=== PATIENT | male | born 1970 | race African-American/Black ===

== ENCOUNTER 2016-06-26 17:33 | Emergency (ER) | payer BC ==
--- NOTE | 2016-06-26 20:29 | ED ---
Gustavo Martinez Adam, scribed for Michele Brannon MD on 06/26/16 at 1950 . Palpitations / Dysrhythmia - HPI Summary HPI Summary: Pt is a 46 year old male presenting with palpitations and chest tightness. He began having these symptoms 6 days ago and they have been intermittent since then. The episodes vary in severity and the pt states that deborah's episode was relatively strong. He began having palpitations and chest tightness at 16: 30 and decided to come to the ED. His palpitations began to resolve as he arrived at the ED but he still feels some pressure in his chest now. He also reports that he had some SOB associated with the palpitations. Pt took his metoprolol earlier. Yesterday he went to his PCP for these symptoms and was advised to follow up with a financial service professional but he has not scheduled an appt yet. He has never seen a financial service professional before. PMHx of HTN. - History of Current Complaint Chief Complaint: EDDysrhythmPalp Time Seen by Provider: 06/26/16 19:19 Hx Obtained From: Patient Onset/Duration: Sudden Onset, Lasting Days, Still Present Timing: Intermittent Episodes Lasting: - Minutes - hours Severity Initially: Moderate Severity Currently: Mild Character: Pounding Aggravating: Nothing Alleviating: Nothing Associated Signs & Symptoms: Chest Pain - Tightness, Shortness of Breath - Allergy/Home Medications Allergies/Adverse Reactions: Allergies Allergy/AdvReac Type Severity Reaction Status Date / Time No Known Allergies Allergy Verified 07/13/14 09:52 PMH/Surg Hx/FS Hx/Imm Hx Endocrine/Hematology History: Denies: Hx Diabetes, Hx Thyroid Disease Cardiovascular History: Reports: Hx Hypertension Respiratory History: Denies: Hx Asthma, Hx Chronic Obstructive Pulmonary Disease (COPD) GI History: Denies: Hx Ulcer Infectious Disease History: No Infectious Disease History: Denies: Hx Hepatitis, Hx Human Immunodeficiency Virus (HIV), Traveled Outside the [place] in Last 30 Days - Family History Known Family History: Positive: Hypertension, Diabetes - Social History Occupation: Employed Full-time Lives: With Family - Domestic partner female Alcohol Use: None Hx Substance Use: No Substance Use Type: Reports: None Hx Tobacco Use: No Smoking Status (MU): Never Smoked Tobacco Review of Systems Positive: Palpitations, Chest Pain - Tightness Positive: Shortness Of Breath All Other Systems Reviewed And Are Negative: Yes Physical Exam Triage Information Reviewed: Yes Vital Signs On Initial Exam: Initial Vitals Temp Pulse Resp BP Pulse Ox 96.9 F 92 20 131/97 95 06/26/16 17:42 06/26/16 17:42 06/26/16 17:42 06/26/16 17:42 06/26/16 17:42 Vital Signs Reviewed: Yes Appearance: Positive: No Pain Distress, Obese Skin: Positive: Warm Head/Face: Positive: Normal Head/Face Inspection Eyes: Positive: MADDISON ENT: Positive: Hearing grossly normal Neck: Positive: Supple Respiratory/Lung Sounds: Positive: Breath Sounds Present Cardiovascular: Positive: RRR. Negative: Murmur Abdomen Description: Positive: Nontender, Soft Bowel Sounds: Positive: Present Musculoskeletal: Positive: Strength/ROM Intact Neurological: Positive: Alert, Oriented to Person Place, Time Psychiatric: Positive: Affect/Mood Appropriate - Galen Coma Scale Coma Scale Total: 15 Diagnostics - Vital Signs Vital Signs Temp Pulse Resp BP Pulse Ox 06/26/16 18:35 98.0 F 06/26/16 18:30 20 06/26/16 17:42 96.9 F 92 20 131/97 95 - Laboratory Lab Statement: Any lab studies that have been ordered have been reviewed, and results considered in the medical decision making process. - EKG 17:34 Cardiac Rate: NL - 92 BPM Re-Evaluation - Re-Evaluation First Eval Comment: pt does not want to wait for labs tates wants to go home, advised to f/ u with pcp/cardio as previously recommended Course/Dx - Diagnoses Provider Diagnoses: Palpitations Discharge - Discharge Plan Condition: Stable Disposition: HOME Patient Education Materials: Palpitations (ED) Referrals: Lolly Chatman NP [Primary Care Provider] - Additional Instructions: Follow up with Lolly Chatman tomorrow. The documentation as recorded by the Gustavo melchor Adam accurately reflects the service I personally performed and the decisions made by me, Michele Brannon MD.
[2016-06-26 23:36] VITALS: BP 138/88
== END 2016-06-26 20:44 | disposition home or self-care (01) ==
LOC: ED 17:33
DX: R00.2 Palpitations (principal); R07.9 Chest pain, unspecified; R06.02 Shortness of breath
CPT/HCPCS: 93005; 99282

== ENCOUNTER 2016-07-22 07:13 | Emergency (ER) | payer BC ==
[2016-07-22 07:28] VITALS: BP 145/82
--- NOTE | 2016-07-22 10:16 | UC ---
Taurus Martinez Billy, scribed for Carmen Castillo DO on 07/22/16 at 0753 . Dental HPI - HPI Summary HPI Summary: Patient is a 46 year-old male [place] [facility] with several weeks of ongoing dental pain. Patient states that he had been controlling the pain with tramadol and ibuprofen, but it is no longer working to alleviate the pain. Pain severity 8/10. Pain is located in several of the upper molars and premolars, worse on the left than the right. Pain is worse when chewing and exposure to cold air. He has not had any drainage in the mouth. - History of Current Complaint Chief Complaint: UCDentalProblem Stated Complaint: TOOTH COMPLAINT Time Seen by Provider: 07/22/16 07:45 Hx Obtained From: Patient Onset/Duration: Gradual Onset, Lasting Weeks, Still Present Severity: Moderate Pain Intensity: 8 Pain Scale Used: 0-10 Numeric Aggravating: Cold, Chewing Alleviating: Other (see comments) - Pain has been controlled with pain medication, but the patient states that this is no longer helping. Related History: Previous Dental Care on Same Tooth - Allergies/Home Medications Allergies/Adverse Reactions: Allergies Allergy/AdvReac Type Severity Reaction Status Date / Time No Known Allergies Allergy Verified 07/13/14 09:52 Home Medications: Home Medications Ibuprofen TAB* [Motrin TAB* 800 MG] 800 mg PO Q6H 07/22/16 [History Confirmed ] traMADol TAB* [Ultram*] 50 mg PO Q6HR PRN 07/22/16 [History Confirmed 07/22/16] PMH/Surg Hx/FS Hx/Imm Hx Endocrine History Of: Denies: Diabetes, Thyroid Disease Cardiovascular History Of: Reports: Hypertension Denies: Cardiac Disorders, Myocardial Infarction Respiratory History Of: Denies: COPD, Asthma GI/ History Of: Denies: Ulcer - Surgical History Surgical History: None - Family History Known Family History: Positive: Hypertension, Diabetes - Social History Lives: With Family Alcohol Use: None Substance Use Type: None Smoking Status (MU): Never Smoked Tobacco Review of Systems Constitutional: Negative Skin: Negative Eyes: Negative ENT: Dental Pain Respiratory: Negative Cardiovascular: Negative Gastrointestinal: Negative Genitourinary: Negative Motor: Negative Neurovascular: Negative Musculoskeletal: Negative Neurological: Negative Psychological: Negative All Other Systems Reviewed And Are Negative: Yes Physical Exam Triage Information Reviewed: Yes Appearance: Well-Appearing, No Pain Distress, Well-Nourished Vital Signs: Initial Vital Signs Temp 99.7 F 07/22/16 07:22 Pulse 60 07/22/16 07:22 Resp 18 07/22/16 07:22 BP 145/82 07/22/16 07:22 Pulse Ox 96 07/22/16 07:22 Vital Signs Reviewed: Yes Eyes: Positive: Conjunctiva Clear. Negative: Discharge ENT: Positive: Normal ENT inspection Dental: Positive: Percussion Tenderness @ - Teeth 11, 13, and 5. Neck: Positive: Supple, Nontender Respiratory: Positive: Lungs clear, Normal breath sounds, No respiratory distress, No accessory muscle use Cardiovascular: Positive: RRR, No Murmur Musculoskeletal Exam: Normal Neurological: Positive: Alert, Muscle Tone Normal Psychological Exam: Normal Psychological: Positive: Age Appropriate Behavior Skin Exam: Normal, Other - Warm, dry skin. Dental Complaint Course/Dx - Differential Dx/Diagnosis Differential Diagnosis/Dx: Dental Abscess, Dental Caries, Fractured Tooth Provider Diagnoses: toothache Discharge - Discharge Plan Condition: Stable Disposition: HOME Prescriptions: Amoxicillin/Clavulanate TAB* [Augmentin TAB 875*] 875 mg PO BID #20 tab traMADol TAB* [Ultram*] 50 mg PO Q8H PRN #7 tab MDD 3 TABS PRN Reason: Pain Patient Education Materials: Toothache (ED) Referrals: Lyudmila Ramirez MD [Primary Care Provider] - If Needed Additional Instructions: AUGMENTIN: Augmentin is a mixture of amoxicillin and clavulanate. Amoxicillin is a member of the penicillin family. It covers the germs likely to cause ear, bronchial, and urinary infections better than plain penicillin. The addition of clavulanate allows it to cover staph infections of the skin, as well as resistant cases of ear and sinus infections. Your physician has chosen Augmentin for you because of the special nature of your situation. Augmentin is best taken with meals. Nausea after taking the medication is rare, but can occur. Diarrhea can occur, particularly in small children. Vaginal yeast infections, and oral thrush in infants are also common. Contact your physician if these problems occur. Allergy to penicillins is common. If you have had an allergic reaction to any drug of the penicillin family, you should never take any other penicillin. Notify your doctor at once if you develop hives, shortness of breath, swelling, or faintness. ANY TIME YOU TAKE AN ANTIBIOTIC, IT IS IMPORTANT TO REPLENISH THE BODY'S BALANCE OF "GOOD" BACTERIA BY EATING HIGH QUALITY CULTURED FOOD SUCH YOGURT, SAURKRAUT OR RANJIT CHI AND/OR TAKING A PROBIOTIC SUPPLEMENT. ULTRAM (tramadol hydrochloride): Ultram is an excellent drug for pain relief. It is not a narcotic, but it works in a similar way. Ultram can take up to two hours for full effect. Although not addicting, Ultram is best avoided in patients with a history of drug abuse. Ultram should not be used with alcohol, sleeping pills, or narcotics. If you're prone to seizures, Ultram can make you more likely to have a seizure. Ultram can be hazardous when combined with MAO-inhibitor antidepressants (such as Nardil or Parnate). Be sure your doctor is aware of all medicines you are taking. Persons with severe liver or kidney disease should increase the time between doses of Ultram. Discuss this with your doctor if you're uncertain. Side effects of Ultram can include dizziness, nausea, constipation, sleepiness, and itching. (These side effects are also seen with narcotic pain medicines.) Please call your doctor if you have other disturbing effects. The documentation as recorded by the Taurus melchor Billy accurately reflects the service I personally performed and the decisions made by , Carmen Castillo DO.
== END 2016-07-22 08:24 | disposition home or self-care (01) ==
LOC: UCEAST 07:13
DX: K08.89 Other specified disorders of teeth and supporting structures (principal); I10 Essential (primary) hypertension
CPT/HCPCS: 99212; G0463

== ENCOUNTER 2017-01-07 08:44 | Observation (INO) | payer BC ==
[2017-01-07] MEDS ORDERED: NS 0.9% 1000 ML* 1,000 ML IV ONE (09:09)
[2017-01-07] MEDS ORDERED: Adenosine SYRINGE* 6 MG/2 ML IV PUSH ONE (09:09)
[2017-01-07] MEDS ORDERED: Adenosine* 3 MG/ML VIAL IV PUSH ONE (09:11)
[2017-01-07 09:25] LABS: Hematocrit 43 % (42-52); Hemoglobin 13.8 g/dl (14.0-18.0); Mean Corpuscular HGB Conc 32 g/dl (31-36); Mean Corpuscular Hemoglobin 28 pg (27-31); Mean Corpuscular Volume 86 fL (80-94); Mean Platelet Volume 8 um3 (7.4-10.4); Red Cell Distribution Width 14 % (10.5-15); White Blood Count 11.6 10^3/ul (3.5-10.8)
[2017-01-07] MEDS ORDERED: Adenosine* 3 MG/ML VIAL ONE (09:25)
--- NOTE | 2017-01-07 09:38 | RAD ---
INDICATION: Shortness of breath and chest pain. COMPARISON: Comparison is made with a prior chest x-ray study from October 06, 2009. TECHNIQUE: A portable view of the chest was obtained. FINDINGS: Cardiac and mediastinal contours appear to be within normal limits. The lungs are clear. No pleural effusion is seen. IMPRESSION: NO EVIDENCE FOR ACUTE DISEASE.
[2017-01-07 09:40] LABS: Albumin 4.1 g/dL (3.2-5.2); BUN/Creatinine Ratio 8.7 (8-20); EGFR African American 99.1 (>60); EGFR Non-African American 77.1 (>60); Globulin 4.2 g/dL (2-4); Magnesium 1.8 mg/dL (1.9-2.7); Potassium 3.6 mmol/L (3.5-5.0); Total Bilirubin 0.4 mg/dL (0.2-1.0); Total Protein 8.3 g/dL (6.4-8.9)
--- NOTE | 2017-01-07 12:03 | ED ---
Mateusz Martinez Thomas, scribed for Braden Hicks MD on 01/07/17 at 0911 . Palpitations / Dysrhythmia - HPI Summary HPI Summary: The pt is a 46 y/o M with a Hx of A-Fib presenting to the ED c/o palpitations characterized as fast that began suddenly this morning at 08:00. He has prior episodes of A-Fib and his last cardioversion was 6 years ago. He took Metoprolol 100mg and ASA 81mg earlier today. Pt additionally c/o tingling in his lower extremities, weakness, tiredness, and SOB. He denies CP in the ED, although he does note a chronic intermittent chest tightness that is aggravated when he walks and works. Pt denies leg swelling, RUIZ, fever, and chills. PMHx: HTN, little bit of an enlarged heart, angina. PSHx: none. SHx: no smoking, no alcohol use, no excessive caffeine use. FHx: Cad, DM, HLD, HTN. His PCP is Dr. Ramirez. He is accompanied by a female family member - History of Current Complaint Chief Complaint: EDGeneral Time Seen by Provider: 01/07/17 09:02 Hx Obtained From: Patient, Family/General Handling Supervisor - accompanied by a female female member Onset/Duration: Sudden Onset, Lasting Minutes - onset today at 08:00, Still Present Timing: Constant Character: Fast Aggravating: Nothing Alleviating: Nothing Associated Signs & Symptoms: Lightheadedness, Shortness of Breath Related History: Similar Episode/Dx as - Last episode of A-Fib 6 years ago - Allergy/Home Medications Allergies/Adverse Reactions: Allergies Allergy/AdvReac Type Severity Reaction Status Date / Time No Known Allergies Allergy Verified 01/07/17 08:56 PMH/Surg Hx/FS Hx/Imm Hx Previously Healthy: No Endocrine/Hematology History: Denies: Hx Diabetes, Hx Thyroid Disease Cardiovascular History: Reports: Hx Angina, Hx Hypertension, Other Cardiovascular Problems/Disorders - "little bit" of an enlarged heart Denies: Hx Coronary Artery Disease, Hx Hypercholesterolemia, Hx Myocardial Infarction, Hx Valvular Heart Disease Respiratory History: Denies: Hx Asthma, Hx Chronic Obstructive Pulmonary Disease (COPD) GI History: Denies: Hx Ulcer - Surgical History Surgery Procedure, Year, and Place: None. Infectious Disease History: Unable to Obtain/Confirm Infectious Disease History: Denies: Hx Hepatitis, Hx Human Immunodeficiency Virus (HIV), Traveled Outside the [place] in Last 30 Days - Family History Known Family History: Positive: Cardiac Disease, Hypertension, Diabetes - Social History Alcohol Use: None Hx Substance Use: No Substance Use Type: Reports: None Hx Tobacco Use: No Smoking Status (MU): Never Smoked Tobacco Review of Systems Negative: Fever, Chills Positive: Palpitations - characterized as fast, Chest Pain - none in the ED, although he has an intermittent chronic CP worsened with exertion Positive: Shortness Of Breath Negative: Edema - leg Neurological: Other - POS: tingling in lower extremities, tiredness Positive: Weakness. Negative: Headache All Other Systems Reviewed And Are Negative: Yes Physical Exam - Summary Physical Exam Summary: The patient is well-nourished in no acute distress and in no acute pain. He is not a great historian. The skin is cool to the touch and dry and skin color reflects adequate perfusion. HEENT: ~The head is normocephalic and atraumatic. The pupils are equal and reactive. The conjunctivae are clear and without drainage. ~Nares are patent and without drainage. ~Mouth reveals moist mucous membranes and the throat is without erythema and exudate. ~The external ears are intact. The ear canals are patent and without drainage. The tympanic membranes are intact. Neck is supple with full range of motion and non-tender. There are no carotid bruits. ~There is no neck vein distension. Respiratory: Chest is non-tender. ~Lungs are clear to auscultation and breath sounds are symmetrical and equal. Cardiovascular: Heart is tachycardic and regular rhythm. ~There is no murmur or rub auscultated. ~~There is no peripheral edema and pulses are symmetrical and equal. Abdomen: The abdomen is soft and non-tender. ~There are normal bowel sounds heard in all four quadrants and there is no organomegaly palpated. Musculoskeletal: There is no back pain noted. ~Extremities are non-tender with full range of motion. ~There is good capillary refill. ~There is no peripheral edema or calf tenderness elicited. Neurological: Patient is alert and oriented to person, place and time. ~The patient has symmetrical motor strength in all four extremities. ~Cranial nerves are grossly intact. Deep tendon reflexes are symmetrical and equal in all four extremities. Psychiatric: The patient has an appropriate affect and does not exhibit any anxiety or depression. Triage Information Reviewed: Yes Vital Signs On Initial Exam: Initial Vitals Temp Pulse Resp BP Pulse Ox 98.2 F 160 22 110/72 100 01/07/17 08:47 01/07/17 08:47 01/07/17 08:47 01/07/17 08:47 01/07/17 08:47 Vital Signs Reviewed: Yes Diagnostics - Vital Signs Vital Signs Temp Pulse Resp BP Pulse Ox 01/07/17 08:47 98.2 F 160 22 110/72 100 - Laboratory Lab Results: Lab Results 01/07/17 01/07/17 01/07/17 Range/Units 09:06 09:06 09:06 WBC 11.6 H (3.5-10.8) 10^3/ul RBC 5.00 (4.0-5.4) 10^6/ul Hgb 13.8 L (14.0-18.0) g/dl Hct 43 (42-52) % MCV 86 (80-94) fL MCH 28 (27-31) pg MCHC 32 (31-36) g/dl RDW 14 (10.5-15) % Plt Count 281 (150-450) 10^3/ul MPV 8 (7.4-10.4) um3 Neut % (Auto) 72.1 (38-83) % Lymph % (Auto) 22.1 L (25-47) % Ingham % (Auto) 4.5 (1-9) % Eos % (Auto) 0.1 (0-6) % Baso % (Auto) 1.2 (0-2) % Absolute Neuts (auto) 8.4 H (1.5-7.7) 10^3/ul Absolute Lymphs (auto) 2.6 (1.0-4.8) 10^3/ul Absolute Monos (auto) 0.5 (0-0.8) 10^3/ul Absolute Eos (auto) 0 (0-0.6) 10^3/ul Absolute Basos (auto) 0.1 (0-0.2) 10^3/ul Absolute Nucleated RBC 0.01 10^3/ul Nucleated RBC % 0.1 INR (Anticoag Therapy) 1.06 (0.89-1.11) APTT 34.0 (26.0-36.3) seconds Sodium 136 (133-145) mmol/L Potassium 3.6 (3.5-5.0) mmol/L Chloride 97 L (101-111) mmol/L Carbon Dioxide 31 (22-32) mmol/L Anion Gap 8 (2-11) mmol/L BUN 9 (6-24) mg/dL Creatinine 1.03 (0.67-1.17) mg/dL Est GFR ( Amer) 99.1 (>60) Est GFR (Non-Af Amer) 77.1 (>60) BUN/Creatinine Ratio 8.7 (8-20) Glucose 161 H (70-100) mg/dL Lactic Acid (0.5-2.0) mmol/L Calcium 10.0 (8.6-10.3) mg/dL Magnesium 1.8 L (1.9-2.7) mg/dL Total Bilirubin 0.40 (0.2-1.0) mg/dL AST 22 (13-39) U/L ALT 29 (7-52) U/L Alkaline Phosphatase 95 (34-104) U/L Troponin I 0.00 (<0.04) ng/mL B-Natriuretic Peptide ( - 100) pg/mL Total Protein 8.3 (6.4-8.9) g/dL Albumin 4.1 (3.2-5.2) g/dL Globulin 4.2 H (2-4) g/dL Albumin/Globulin Ratio 1.0 (1-3) TSH 1.00 (0.34-5.60) mcIU/mL 01/07/17 01/07/17 Range/Units 09:06 09:06 WBC (3.5-10.8) 10^3/ul RBC (4.0-5.4) 10^6/ul Hgb (14.0-18.0) g/dl Hct (42-52) % MCV (80-94) fL MCH (27-31) pg MCHC (31-36) g/dl RDW (10.5-15) % Plt Count (150-450) 10^3/ul MPV (7.4-10.4) um3 Neut % (Auto) (38-83) % Lymph % (Auto) (25-47) % Ing[place] % (Auto) (1-9) % Eos % (Auto) (0-6) % Baso % (Auto) (0-2) % Absolute Neuts (auto) (1.5-7.7) 10^3/ul Absolute Lymphs (auto) (1.0-4.8) 10^3/ul Absolute Monos (auto) (0-0.8) 10^3/ul Absolute Eos (auto) (0-0.6) 10^3/ul Absolute Basos (auto) (0-0.2) 10^3/ul Absolute Nucleated RBC 10^3/ul Nucleated RBC % INR (Anticoag Therapy) (0.89-1.11) APTT (26.0-36.3) seconds Sodium (133-145) mmol/L Potassium (3.5-5.0) mmol/L Chloride (101-111) mmol/L Carbon Dioxide (22-32) mmol/L Anion Gap (2-11) mmol/L BUN (6-24) mg/dL Creatinine (0.67-1.17) mg/dL Est GFR ( Amer) (>60) Est GFR (Non-Af Amer) (>60) BUN/Creatinine Ratio (8-20) Glucose (70-100) mg/dL Lactic Acid 3.2 H* (0.5-2.0) mmol/L Calcium (8.6-10.3) mg/dL Magnesium (1.9-2.7) mg/dL Total Bilirubin (0.2-1.0) mg/dL AST (13-39) U/L ALT (7-52) U/L Alkaline Phosphatase (34-104) U/L Troponin I (<0.04) ng/mL B-Natriuretic Peptide 55 ( - 100) pg/mL Total Protein (6.4-8.9) g/dL Albumin (3.2-5.2) g/dL Globulin (2-4) g/dL Albumin/Globulin Ratio (1-3) TSH (0.34-5.60) mcIU/mL Result Diagrams: 01/07/17 09:06 01/07/17 09:06 Lab Statement: Any lab studies that have been ordered have been reviewed, and results considered in the medical decision making process. - Radiology CXR Xray Interpretation: No Acute Changes - CXR shows on evidence for acute disease. ED physician has read this report and agrees. Radiology Interpretation Completed By: Radiologist - EKG 08:51 Cardiac Rate: Tachycardia - 137 BPM EKG Interpretation: SVT at 137 BPM with no P waves, regular, and nonspecific ST changes. 09:33 Cardiac Rate: NL - 93 BPM EKG Interpretation: Sinus rhythm at 89 BPM, nonspecific ST changes, and no STEMI. Re-Evaluation - Re-Evaluation First Eval Re-Evaluation Time: 11:15 Change: Unchanged Comment: He is still having chest pain. Course/Dx - Course Assessment/Plan: The pt is a 46 y/o M with a Hx of A-Fib presenting to the ED c/ o palpitations characterized as fast that began suddenly this morning at 08:00. He has prior episodes of A-Fib and his last cardioversion was 6 years ago. He took Metoprolol 100mg and ASA 81mg earlier today. Pt additionally c/o tingling in his lower extremities, weakness, tiredness, and SOB. He denies CP in the ED, although he does note a chronic intermittent chest tightness that is aggravated when he walks and works. Pt denies leg swelling, RUIZ, fever, and chills. PMHx: HTN, little bit of an enlarged heart, angina. PSHx: none. SHx: no smoking, no alcohol use, no excessive caffeine use. FHx: Cad, DM, HLD, HTN. His PCP is Dr. Ramirez. He is accompanied by a female family member. The patient was given IV fluids. Bloodwork was obtained and it shows WBC 11.6, chloride 97, troponin 0.00, BNP 55. EKG at 08:51 shows SVT at 137 BPM with no P waves, regular, and nonspecific ST changes. Based on his first EKG, it was thought that he was in SVT. For this, he was given 6mg adenosine with no change, and then he was given 12mg, when he converted to a sinus rhythm. Second EKG at 09: 33 shows sinus rhythm at 89 BPM, nonspecific ST changes, and no STEMI. CXR shows on evidence for acute disease. ED physician has read this report and agrees. At re-evaluation at 11:08, the patient is still having CP. Therefore, we are going to admit for rule-out of ACS. The patient is diagnosed with SVT and CP. I consulted with Dr. Kohler, hospitalist, who admits the patient to [facility] [place] at 11:30. Pt is agreeable to this plan. 30 minutes of critical care time. - Diagnoses Differential Diagnosis/HQI/PQRI: Positive: Cardiomyopathy, Congestive Heart Failure, Coronary Artery Disease, Hypokalemia, Paroxymal SVT, Other - atrial fibrillation, exertional cheat pain, obesity Provider Diagnoses: SVT (supraventricular tachycardia), Chest pain - Physician Notifications Discussed Care Of Patient With: Naty Kohler Time Discussed With Above Provider: 11:30 Instructed by Provider To: Other - Dr. Kohler, hospitalist, admits the patient to [facility] [place]. - Critical Care Time Critical Care Time: 30-74 min - 30 minutes Discharge - Discharge Plan Condition: Fair Disposition: ADMITTED TO [facility] Discharge Disposition Comment: By Dr. Brothers. The documentation as recorded by the Mateusz melchor Thomas accurately reflects the service I personally performed and the decisions made by me, Braden Hicks MD.
[2017-01-07] MEDS ORDERED: Morphine INJ* 2 MG/ML 1 ML CARPUJECT IV PRN (12:30)
[2017-01-07] MEDS ORDERED: Morphine INJ* 2 MG/ML 1 ML SYRINGE (TWO MG - NEW SYRINGE VERSION) ONE (12:43)
[2017-01-07] MEDS ORDERED: Acetaminophen TAB* 325 MG PO PRN (13:08)
[2017-01-07] MEDS ORDERED: Ondansetron INJ* 2 MG/ML VIAL IV PRN (13:08)
[2017-01-07] MEDS ORDERED: Aspirin Low Dose CHEW TAB* 81 MG PO ONE ×2 (13:32→17:15)
[2017-01-07] MEDS ORDERED: Magnesium Sulfate 2 GM IV* 2 GM/50 ML BAG IVPB ONE (13:33)
[2017-01-07] MEDS ORDERED: Potassium Chlor TAB* 20 MEQ TAB.ER PO ONE (13:33)
[2017-01-07 14:54] LABS: Urine Bilirubin Negative (Negative); Urine Glucose Negative (Negative); Urine Nitrite Negative (Negative)
[2017-01-07] MEDS: Heparin VIAL(*) 5000 UNITS/ML VIAL (FIVE THOUSAND) SUBCUT SCH ×2 (15:06→20:54)
[2017-01-07] MEDS ORDERED: Albuterol HFA INHALER* 8 gm MDI INH PRN (16:31)
[2017-01-07] MEDS ORDERED: Bisacodyl EC TAB* 5 MG PO PRN (16:31)
--- NOTE | 2017-01-07 16:45 | HP ---
CC: Dr. Ramirez * HISTORY AND PHYSICAL: DATE OF ADMISSION: 01/07/17 PRIMARY CARE PROVIDER: Dr. Ramirez. ATTENDING PHYSICIAN WHILE IN THE HOSPITAL: Naty Price MD * (report dictated by Rylan Yang NP) CHIEF COMPLAINT: 1. Palpitations. 2. Chest pain. HISTORY OF PRESENT ILLNESS: Mr. Stevenson is a 46-year-old male patient with a history of SVT, anxiety, hypertension and GERD. He comes into the ED today stating that he was on his way to a doctor's appointment and while he was going there, he started feeling palpitations and he felt like his heart was racing. He has had symptoms like this before, but today it was much worse as he had a lot of chest pressure and discomfort. He says he has been having chest pressure and discomfort for the last 2 to 3 days, it has been constant in nature and it happens at rest and sometimes happens with exertion. The pain is not positional. He says he is not having any chest discomfort now. He says when he got into the ER and when there, his heart rate slowed down. He says he felt much better. He denied having any palpitations in the last 2 to 3 days. He says the discomfort did not go into his jaw or down his arm. He had shortness of breath today with the palpitations. No shortness of breath now. He had no diaphoresis and no nausea. He is complaining of actually having some left flank pain now. He denied having any dysuria. He does state that he has been having some hesitancy at times with his urination, but no frequency or dysuria. He came into our ED, was evaluated and found to be in SVT and was given adenosine and converted, but he was still afterwards having some chest discomfort down in the ED and because of this, we were asked to evaluate for admission. He denied having any recent change in medications. He has been taking his meds as prescribed. He denied having any abdominal discomfort, but no nausea or vomiting. There has been no dysuria. There has been no frequency or any seizure or loss of consciousness, but because of the chest discomfort we were asked to evaluate for admission. PAST MEDICAL HISTORY: Significant for: 1. SVT. 2. Anxiety. 3. Hypertension. 4. GERD. PAST SURGICAL HISTORY: Denies. HOME MEDICATIONS: According to his recall, and we are going to try to get an updated list, include: 1. Hydrochlorothiazide 25 mg daily. He says he has not been taking this in the last 2 to 3 days. 2. Ferrous sulfate 1 tablet p.o. b.i.d. 3. Colace 1 tablet daily. 4. ProAir 2 puffs inhaled every 4 hours as needed. 5. Tramadol 50 mg every 6 hours as needed. 6. Multivitamin 1 tablet daily. 7. Lopressor 100 mg p.o. b.i.d. 8. Methadone 1 tablet p.o. daily. He does not know the dose. ALLERGIES TO MEDICATIONS: Include no known drug allergies. FAMILY HISTORY: Mother had cancer, ovarian. Father had a history of PE. SOCIAL HISTORY: He does not smoke. He does not drink. He is a former substance abuser, but he denies that now. Surrogate decision maker is his girlfriend. REVIEW OF SYSTEMS: There is no documented fever. He denies having any significant weight change. There is no double vision. No ear discharge. He denied having any rhinorrhea. No sore throat. No thyroid enlargement. He denies having any chest pain currently, but there was some per my HPI. There is no nausea. No vomiting. No dysuria. No frequency. No loss of consciousness. No pruritus. No skin ulcerations. Review of 14 systems completed, all others negative. PHYSICAL EXAMINATION GENERAL: At this time, Mr. Stevenson is a 46-year-old male patient. He is sitting in the hospital bed. He does not appear to be in any acute distress. VITAL SIGNS: Reveals blood pressure 129/75, pulse 76, respirations 16, O2 sat 100%, temperature 97.5. HEENT: Head is atraumatic, normocephalic. Eyes: EOMs are intact. Sclerae are anicteric, not pale. Throat: Oral mucosa appears to be moist. No oropharyngeal erythema. NECK: Supple. LUNGS: Clear to auscultation. No wheezes, rales, or rhonchi. HEART: Sounds S1, S2. Regular rate and rhythm. No murmurs, rubs, or gallops. ABDOMEN: Soft, flat, and nontender. Bowel sounds are present. EXTREMITIES: Pulses 2+ throughout. No peripheral edema. Moving all 4 extremities with 5/5 strength. NEUROLOGICAL: The patient is awake. He is alert. He is oriented x3. No gross focal deficits. SKIN: Intact. DIAGNOSTIC STUDIES/LAB DATA: His labs today revealed a WBC of 11.6, RBC of 5.0 , hemoglobin of 13.8, hematocrit of 43, platelet count of 281,000. INR of 1.06. PTT of 34.0. Sodium is 136, potassium is 3.6, chloride of 97, bicarb 31 , BUN 9, creatinine 1.01. Glucose of 161, lactic 3.2, calcium 10, mag 1.8. Total bili 0.4, AST 22, ALT 29, alk phos 95. Troponin 0. BNP of 55. TSH of 1. Repeat troponin is pending. He did have a chest x-ray obtained today, impression: No evidence for acute disease. He did have an EKG obtained today. His initial EKG did show SVT at a rate of 137. He did have a repeat EKG after adenosine and then converted to a normal sinus rhythm with a rate of 89. No ST elevations or T-wave inversions were noted. Old medical records were reviewed. He did have a resting stress portion done in June, but never followed back up with a stress portion of the stress test. That impression read limited study, moderate fixed defect of the distal lateral wall towards the apex suggestive of previous infarct. Old medical records were reviewed. ASSESSMENT AND PLAN: Mr. Stevenson is a 46-year-old male patient coming into the ER today with complaints of chest discomfort, palpitations, and found to be in supraventricular tachycardia and now having chest pain. He will be admitted under observation status for: 1. Chest pain. At this point, I am going to try to get the stress test both portions, as I am concerned he now has had chest pain for the last 2 to 3 days and it has been constant, but I would like to cycle his troponins, get a lipid panel and A1c. Gave him aspirin. Continue the beta akosua and place him on telemetry and continue to follow him closely and I will check a D-dimer as well. 2. Hypertension. Continue meds as prescribed. 3. Left flank pain. I am going to check a urine certainly get a CT scan of his abdomen and pelvis to look for kidney stone. 4. Anxiety. Supportive care. 5. Gastroesophageal reflux disease. Continue meds as prescribed. 6. DVT prophylaxis. He will be placed on heparin subcu. 7. Code status. Full code. 8. Electrolytes replacement. I am going to replace the potassium, get that up around 4. Replace the magnesium, get that up to 2. 9. Lactic acidosis. His lactic was mildly elevated, we will repeat this. I do not think . We will follow closely. 10. Code status. Full code. 11. Fluids, electrolytes, and nutrition. He can have a heart healthy diet, then n.p.o. after midnight. TIME SPENT: Time spent on the admission was 60 minutes; greater than half the time was spent [id number] with the patient obtaining my history and physical, other half of the time was spent going over the plan of care with the patient and implementing the plan of care. I did discuss plan of care with my attending, Dr. Price; she is in agreement. RYLAN YANG NP [id number]/[facility] #: [id number] EDGAR
[2017-01-07] MEDS ORDERED: Morphine INJ* 2 MG/ML 1 ML SYRINGE (TWO MG - NEW SYRINGE VERSION) IV PRN (16:47)
[2017-01-07 16:52] LABS: Hematocrit 42 % (42-52); Hemoglobin 13.5 g/dl (14.0-18.0); Mean Corpuscular HGB Conc 32 g/dl (31-36); Mean Corpuscular Hemoglobin 28 pg (27-31); Mean Corpuscular Volume 87 fL (80-94); Mean Platelet Volume 8 um3 (7.4-10.4); Red Blood Count 4.83 10^6/ul (4.0-5.4); Red Cell Distribution Width 14 % (10.5-15)
[2017-01-07 17:18] LABS: EGFR African American 100.2 (>60)
[2017-01-07] MEDS ORDERED: Metoprolol Tartrate TAB* 100 MG TAB PO SCH (21:00)
[2017-01-07] MEDS: Magnesium Hydroxide LIQ* 30 ML UDC PO PRN (22:37)
[2017-01-08 04:48] LABS: Hematocrit 42 % (42-52); Hemoglobin 13.4 g/dl (14.0-18.0); Mean Corpuscular HGB Conc 32 g/dl (31-36); Mean Corpuscular Hemoglobin 28 pg (27-31); Mean Corpuscular Volume 88 fL (80-94); Mean Platelet Volume 7 um3 (7.4-10.4); Red Blood Count 4.78 10^6/ul (4.0-5.4); Red Cell Distribution Width 14 % (10.5-15); White Blood Count 9.3 10^3/ul (3.5-10.8)
[2017-01-08 05:02] LABS: BUN/Creatinine Ratio 12.1 (8-20); Calcium 9.1 mg/dL (8.6-10.3); EGFR African American 103.8 (>60); EGFR Non-African American 80.7 (>60); HDL Cholesterol 49.2 mg/dL
[2017-01-08] MEDS: Heparin VIAL(*) 5000 UNITS/ML VIAL (FIVE THOUSAND) SUBCUT SCH (05:41)
[2017-01-08 08:26] VITALS: BP 140/80
--- NOTE | 2017-01-08 08:52 | PN ---
Subjective Date of Service: 01/08/17 Interval History: Mr. Stevenson continues to complain of chest discomfort this morning since getting his stress test. He says the only thing that gave him relief was the lovenox injections. He says that every time he gets the injection, he has sudden relief. He had no telemetry events overnight. He also complains of some constipation recently, a 15 pound weight loss unintentionally, and anxiety. Denies heartburn, diarrhea, hair loss, or dysuria. Family History: Unchanged from Admission Social History: Unchanged from Admission Past Medical History: Unchanged from Admission Objective Active Medications: Acetaminophen (Tylenol Tab*) 650 mg PO Q4H PRN PRN Reason: FEVER/PAIN Albuterol (Ventolin Hfa Inhaler*) 1 puff INH Q6HR PRN PRN Reason: SHORTNESS OF BREATH Aspirin (Aspirin Low Dose Tab*) 81 mg PO DAILY [facility] Bisacodyl (Dulcolax Ec Tab*) 5 mg PO DAILY PRN PRN Reason: CONSTIPATION Heparin Sodium (Porcine) (Heparin Vial(*)) 5,000 units SUBCUT Q8HR [facility] Last Admin: 01/08/17 05:41 Dose: 5,000 units Magnesium Hydroxide (Milk Of Magndenys Liq*) 15 ml PO BEDTIME PRN PRN Reason: CREATE BOWEL MOVEMENT Last Admin: 01/07/17 22:37 Dose: 15 ml Metoprolol Tartrate (Lopressor Tab*) 100 mg PO BID [facility] Last Admin: 01/07/17 20:54 Dose: 100 mg Morphine Sulfate (Morphine Inj (Syringe)*) 2 mg IV Q4H PRN PRN Reason: PAIN - MILD Omeprazole (Prilosec Cap*) 20 mg PO DAILY [facility] Ondansetron HCl (Zofran Inj*) 4 mg IV Q6H PRN PRN Reason: NAUSEA Vital Signs 01/07/17 01/07/17 01/07/17 12:23 12:25 13:05 Temperature 97.5 F Pulse Rate 84 76 Respiratory 16 16 16 Rate Blood Pressure 134/84 129/75 (mmHg) O2 Sat by Pulse 95 100 Oximetry 01/07/17 01/07/17 01/07/17 14:05 15:48 16:00 Temperature 98.0 F Pulse Rate 70 Respiratory 16 16 Rate Blood Pressure 125/83 (mmHg) O2 Sat by Pulse 98 98 Oximetry 01/07/17 01/07/17 01/08/17 20:03 23:38 00:00 Temperature 97.2 F 97.6 F Pulse Rate 64 61 Respiratory 12 18 Rate Blood Pressure 112/66 112/73 (mmHg) O2 Sat by Pulse 98 96 96 Oximetry 01/08/17 01/08/17 03:13 07:13 Temperature 97.4 F 97.5 F Pulse Rate 69 66 Respiratory 18 16 Rate Blood Pressure 121/75 140/80 (mmHg) O2 Sat by Pulse 97 98 Oximetry Oxygen Devices in Use Now: None Appearance: alert, sitting up in the chair, no distress Eyes: No Scleral Icterus, PERRLA Ears/Nose/Mouth/Throat: NL Teeth, Lips, Gums, Clear Oropharnyx Neck: NL Appearance and Movements; NL JVP, Trachea Midline Respiratory: Symmetrical Chest Expansion and Respiratory Effort, Clear to Auscultation Cardiovascular: NL Sounds; No Murmurs; No JVD, RRR, No Edema Abdominal: NL Sounds; No Tenderness; No Distention, No Hepatosplenomegaly Lymphatic: No Cervical Adenopathy Extremities: No Edema Skin: No Rash or Ulcers Neurological: Alert and Oriented x 3 Result Diagrams: 01/08/17 04:28 01/08/17 04:28 Additional Lab and Data: Lab Results 01/07/17 01/07/17 01/07/17 Range/Units 09:06 09:06 09:06 WBC 11.6 H (3.5-10.8) 10^3/ul RBC 5.00 (4.0-5.4) 10^6/ul Hgb 13.8 L (14.0-18.0) g/dl Hct 43 (42-52) % MCV 86 (80-94) fL MCH 28 (27-31) pg MCHC 32 (31-36) g/dl RDW 14 (10.5-15) % Plt Count 281 (150-450) 10^3/ul MPV 8 (7.4-10.4) um3 Neut % (Auto) 72.1 (38-83) % Lymph % (Auto) 22.1 L (25-47) % Frederick % (Auto) 4.5 (1-9) % Eos % (Auto) 0.1 (0-6) % Baso % (Auto) 1.2 (0-2) % Absolute Neuts (auto) 8.4 H (1.5-7.7) 10^3/ul Absolute Lymphs (auto) 2.6 (1.0-4.8) 10^3/ul Absolute Monos (auto) 0.5 (0-0.8) 10^3/ul Absolute Eos (auto) 0 (0-0.6) 10^3/ul Absolute Basos (auto) 0.1 (0-0.2) 10^3/ul Absolute Nucleated RBC 0.01 10^3/ul Nucleated RBC % 0.1 INR (Anticoag Therapy) 1.06 (0.89-1.11) APTT 34.0 (26.0-36.3) seconds Sodium 136 (133-145) mmol/L Potassium 3.6 (3.5-5.0) mmol/L Chloride 97 L (101-111) mmol/L Carbon Dioxide 31 (22-32) mmol/L Anion Gap 8 (2-11) mmol/L BUN 9 (6-24) mg/dL Creatinine 1.03 (0.67-1.17) mg/dL Est GFR ( Amer) 99.1 (>60) Est GFR (Non-Af Amer) 77.1 (>60) BUN/Creatinine Ratio 8.7 (8-20) Glucose 161 H (70-100) mg/dL Lactic Acid (0.5-2.0) mmol/L Calcium 10.0 (8.6-10.3) mg/dL Magnesium 1.8 L (1.9-2.7) mg/dL Total Bilirubin 0.40 (0.2-1.0) mg/dL AST 22 (13-39) U/L ALT 29 (7-52) U/L Alkaline Phosphatase 95 (34-104) U/L Troponin I 0.00 (<0.04) ng/mL B-Natriuretic Peptide ( - 100) pg/mL Total Protein 8.3 (6.4-8.9) g/dL Albumin 4.1 (3.2-5.2) g/dL Globulin 4.2 H (2-4) g/dL Albumin/Globulin Ratio 1.0 (1-3) TSH 1.00 (0.34-5.60) mcIU/mL 01/07/17 01/07/17 Range/Units 09:06 09:06 WBC (3.5-10.8) 10^3/ul RBC (4.0-5.4) 10^6/ul Hgb (14.0-18.0) g/dl Hct (42-52) % MCV (80-94) fL MCH (27-31) pg MCHC (31-36) g/dl RDW (10.5-15) % Plt Count (150-450) 10^3/ul MPV (7.4-10.4) um3 Neut % (Auto) (38-83) % Lymph % (Auto) (25-47) % Frederick % (Auto) (1-9) % Eos % (Auto) (0-6) % Baso % (Auto) (0-2) % Absolute Neuts (auto) (1.5-7.7) 10^3/ul Absolute Lymphs (auto) (1.0-4.8) 10^3/ul Absolute Monos (auto) (0-0.8) 10^3/ul Absolute Eos (auto) (0-0.6) 10^3/ul Absolute Basos (auto) (0-0.2) 10^3/ul Absolute Nucleated RBC 10^3/ul Nucleated RBC % INR (Anticoag Therapy) (0.89-1.11) APTT (26.0-36.3) seconds Sodium (133-145) mmol/L Potassium (3.5-5.0) mmol/L Chloride (101-111) mmol/L Carbon Dioxide (22-32) mmol/L Anion Gap (2-11) mmol/L BUN (6-24) mg/dL Creatinine (0.67-1.17) mg/dL Est GFR ( Amer) (>60) Est GFR (Non-Af Amer) (>60) BUN/Creatinine Ratio (8-20) Glucose (70-100) mg/dL Lactic Acid 3.2 H* (0.5-2.0) mmol/L Calcium (8.6-10.3) mg/dL Magnesium (1.9-2.7) mg/dL Total Bilirubin (0.2-1.0) mg/dL AST (13-39) U/L ALT (7-52) U/L Alkaline Phosphatase (34-104) U/L Troponin I (<0.04) ng/mL B-Natriuretic Peptide 55 ( - 100) pg/mL Total Protein (6.4-8.9) g/dL Albumin (3.2-5.2) g/dL Globulin (2-4) g/dL Albumin/Globulin Ratio (1-3) TSH (0.34-5.60) mcIU/mL Assess/Plan/Problems-Billing Assessment: 1. SVT Resolved with adenosine in the ED and has been in NSR since that time. He denies recent illness, caffeine, alcohol, or other drugs. He has not missed any doses of metoprolol. He is getting a stress test now, but I doubt there will be evidence of ischmia, as it would be unlikely to cause svt. Check TSH and TTE. He may be a candidate for an ablation. May benefit from higher dose of metoprolol. 2. HTN Reduce hctz dose to allow for higher dose of metoprolol for better rate control. 3. Chronic pain syndrome on maintenance methadone 4. DVT ppx-heparin sc
[2017-01-08] MEDS ORDERED: Omeprazole CAP* 20 MG PO SCH ×2 (09:00→21:00)
[2017-01-08] MEDS ORDERED: Aspirin Low Dose CHEW TAB* 81 MG PO SCH (09:00)
[2017-01-08] MEDS ORDERED: Regadenoson* 0.4 MG/5 ML SYRINGE ONE (09:51)
[2017-01-08] MEDS ORDERED: Aminophylline IV* 25 MG/ML 10 ML VIAL ONE (09:51)
--- NOTE | 2017-01-08 11:47 | RAD ---
HISTORY: Chest pain, shortness of breath, hypertension COMPARISONS: July 10, 2016 TECHNIQUE: A 1 day stress/rest myocardial perfusion study was performed, with pharmacologic stress. The stress portion was monitored by Dr. Nath. Gated SPECT imaging was performed, without CT-based attenuation correction secondary to patient rotation. DOSE: Stress: Technetium 99m tetrofosmin, 25.71 millicuries, injected at 10:05 AM on January 08, 2017 Rest: Technetium 99m tetrofosmin, 10.17 millicuries, injected at 6:01 AM on January 08, 2017 Pharmacologic agent: Lexiscan FINDINGS: CARDIAC MONITORING: No EKG changes of ischemia with stress EF: 69 % TID: 0.83 MOTION: Normal motion, with normal wall thickening. PERFUSION: There is a small fixed defect of the lateral wall with minimal marginal reversibility. OTHER: None IMPRESSION: SMALL FIXED DEFECT OF THE LATERAL WALL SUGGESTIVE OF AN AREA OF PREVIOUS INFARCT WITH MINIMAL MARGINAL ISCHEMIA ASSESSMENT: LOW RISK. Based on imaging criteria from ACC/AHA 2002. Guideline Update for the Management of Patient's with Chronic Stable Angina, table 23. Noninvasive Risk Stratification.
--- NOTE | 2017-01-08 11:47 | ECHO ---
Patient: OSWADLO MAZARIEGOS [facility] Rec#: [id number] : 1970 Date: 01/08/2017 Age: 46y Height: 195.6 cm / 77.0 in Weight: 141.5 kg / 311.9 lbs Sex: M BSA: 2.7 Room#: 432 Admit Date#: 01/07/2017 Type: Inpatient Referring: Tiara Suresh MD Reading: Ivania Castellanos MD Commercial Title Examiner: Ileana Zuniga RN RDCS CC: Lyudmila Ramirez MD Transthoracic Echocardiogram Indication: SVT, palpitations, chest pain BP: 140/80 HR: 73 Rhythm: NSR Findings History: HTN, SVT, GERD, anxiety Technical Comments: The study quality is fair. The study is technically limited due to patient body habitus. Completed at 1115. Left Ventricle: The left ventricular chamber size is normal. Global left ventricular wall motion and contractility are within normal limits. Left ventricular systolic function is at the lower limits of normal. The estimated ejection fraction is 50-55%. Abnormal left ventricular diastolic filling is observed, consistent with impaired relaxation. Left Atrium: The left atrial chamber size is normal. Right Ventricle: The right ventricular chamber size and systolic function are within normal limits. Right Atrium: The right atrial cavity size is normal. Aortic Valve: The aortic valve is trileaflet. The aortic valve leaflets are mildly thickened. There is no evidence of aortic regurgitation. There is no evidence of aortic stenosis. Mitral Valve: The mitral valve leaflets are mildly thickened. There is a trace of mitral regurgitation. There is no evidence of mitral stenosis. Tricuspid Valve: The tricuspid valve leaflets are normal. There is trace tricuspid regurgitation. No pulmonary hypertension is noted. There is no tricuspid stenosis. Pulmonic Valve: The pulmonic valve appears normal. There is a trace pulmonic regurgitation. There is no pulmonic stenosis. Pericardium: There is no significant pericardial effusion. A pericardial fat pad is visualized. Aorta: There is no dilatation of the ascending aorta. There is no dilatation of the aortic arch. There is no dilation of the aortic root. Pulmonary Artery: The main pulmonary artery is not well visualized. Venous: The venous system is not well visualized. The inferior vena cava is not visualized. Summary: There was not any prior study for comparison. Conclusions Global left ventricular wall motion and contractility are within normal limits. Left ventricular systolic function is at the lower limits of normal. The estimated ejection fraction is 50-55%. Abnormal left ventricular diastolic filling is observed, consistent with impaired relaxation. There is a trace of mitral regurgitation. There is trace tricuspid regurgitation. There is a trace pulmonic regurgitation. Measurements Name Value Normal Range RVDdMajor (2D) 3.7 cm (2.2 - 4.4) RAd ISD 4CH 4.7 cm (3.4 - 4.9) RA (A4C)W 4 cm (2.9 - 4.6) IVSd (2D) 1 cm (0.6 - 1) LVPWd (2D) 1 cm (0.6 - 1) LVIDd (2D) 4.9 cm (3.6 - 5.4) LVIDs (2D) 3.4 cm - LV FS (2D) 31 % (25 - 45) Aortic Annulus 2.4 cm (1.4 - 2.6) Ao root diameter (2D) 3.4 cm (2.1 - 3.5) Ascending Ao 3.3 cm (2.1 - 3.4) Aortic arch 2.9 cm (1.8 - 3.4) LA dimension (AP) 2D 3.6 cm (2.3 - 3.8) LAd ISD 4CH 4.9 cm (2.9 - 5.3) LA ISD 4CH W 4.4 cm (2.5 - 4.5) Name Value Normal Range LA ESV SP 4CH (A/L) 44 ml - LA ESV SP 2CH (A/L) 47 ml - LA ESV BP (A/L) 45 ml - LA ESV BP (A/L) index 16.7 ml/m2 - LA ESV SP 4CH (MOD) 39 ml - LA ESV SP 2CH (MOD) 44 ml - Name Value Normal Range MV E-wave Vmax 0.6 m/sec - MV deceleration time 243 msec - MV A-wave Vmax 0.85 m/sec - MV E:A ratio 0.7 ratio - LV septal e' Vmax 0.07 m/sec - LV lateral e' Vmax 0.08 m/sec - LV E:e' septal ratio 8.6 ratio - LV E:e' lateral ratio 7.5 ratio - Name Value Normal Range AV Vmax 1.3 m/sec - AV VTI 29.2 cm - AV peak gradient 6.7 mmHg - AV mean gradient 4.4 mmHg - LVOT Vmax 1 m/sec - LVOT VTI 23.1 cm - LVOT peak gradient 3.9 mmHg - LVOT mean gradient 2.3 mmHg - DEMETRIA Vmax 0.82 m/sec - Name Value Normal Range TR Vmax 2.5 m/sec - TR peak gradient 25 mmHg - RAP 8 mmHg - RVSP 33 mmHg - Name Value Normal Range PV Vmax 0.94 m/sec -
[2017-01-08] MEDS ORDERED: Metoprolol Tartrate TAB* 50 mg PO SCH ×2 (11:53→13:00)
[2017-01-08] MEDS: Magnesium Hydroxide LIQ* 30 ML UDC PO PRN (12:06)
--- NOTE | 2017-01-09 07:39 | DS ---
CC: Dr. Ramirez; Dr. Nath * DISCHARGE SUMMARY: DATE OF ADMISSION: 01/07/17 DATE OF DISCHARGE: 01/08/17 PRIMARY DIAGNOSIS: Supraventricular tachycardia. SECONDARY DIAGNOSES: 1. Chronic pain syndrome. 2. Obesity. 3. Anxiety. 4. Hypertension. 5. GERD. PRIMARY CARE PHYSICIAN: Dr. Ramirez. SCUBA DIVER: Dr. Nath. DISCHARGE MEDICATIONS: 1. Hydrochlorothiazide 12.5 mg daily. 2. Ferrous sulfate 325 mg b.i.d. 3. Colace 1 tab daily. 4. ProAir 2 puffs inhaled q.4 p.r.n. 5. Metoprolol 125 mg p.o. b.i.d. HOSPITAL COURSE BY PROBLEM: 1. Supraventricular tachycardia upon arrival to the emergency department. Mr. Stevenson was noted to be in SVT to the 130s. He was given adenosine which broke the rhythm and he remained in normal sinus rhythm on telemetry overnight. He required no further rate control and an echocardiogram was performed which showed no structural abnormalities that may be contributing to SVT. He denies caffeine intake, alcohol or other illicit drugs and says he was taking his all medications as prescribed and had not run out of any recently. Because of his chest discomfort associated with exertion, a stress test was performed. It was negative for ischemia. He is being discharged on an increased dose of metoprolol, decreased his hydrochlorothiazide in half in order to allow room to increase metoprolol to 125 mg p.o. b.i.d. I made a followup appointment for him with Dr. Nath in 5 days. He may be a good candidate for an ablation and he is willing to discuss this further. 2. Hypertension. Blood pressure was well controlled on home regimen. I decreased HCTZ as above to allow room to increase metoprolol. 3. Anxiety. This certainly could be playing a role in his SVT; however, he is not on any medications for anxiety at this time. 4. Chronic pain syndrome. He takes methadone at home. His QTC is 479. He is being discharged on his home dose. TIME SPENT: Greater than 30 minutes were spent on this discharge. [id number]/[facility] #: [id number] [facility] HOSPITALJoseluis
== END 2017-01-08 13:15 | disposition home or self-care (01) ==
LOC: ED 08:44 → MEDTELE 11:29
PROVIDERS: ADMIT Internal Medicine; ATTEND Internal Medicine
DX: I47.1 Supraventricular tachycardia (principal); G89.29 Other chronic pain; E66.9 Obesity, unspecified; F41.9 Anxiety disorder, unspecified; E78.5 Hyperlipidemia, unspecified; K21.9 Gastro-esophageal reflux disease without esophagitis; I10 Essential (primary) hypertension; R07.9 Chest pain, unspecified; E87.2 Acidosis; I51.7 Cardiomegaly; R06.02 Shortness of breath; Z79.899 Other long term (current) drug therapy
CPT/HCPCS: 36415; 71010; 78452; 80048; 80053; 80061; 81003; 82565; 83036; 83605; 83735; 83880; 84443; 84484; 84520; 85025; 85379; 85610; 85730; 93005; 93017; 93306; 96361; 96365; 96372; 96375; 99291; A9270-GY; A9502; G0378; J0153; J0280; J1644; J2270; J2785; J3475

== ENCOUNTER 2017-08-26 23:09 | Emergency (ER) | payer BC ==
[2017-08-27] MEDS ORDERED: Metoprolol Tartrate TAB* 25 MG PO ONE (01:54)
--- NOTE | 2017-08-27 02:58 | ED ---
Danielito Martinez Angela, scribed for Erum Valerio MD on 08/27/17 at 0151 . Palpitations / Dysrhythmia - HPI Summary HPI Summary: This pt is a 47 y/o male presenting to [facility] c/o palpitations since last night, 08/26/17. Pt reports he was at work last night when he began to feel palpitations , characterized as his heart skipping beats. He states he took his blood pressure at work and it was 150s/92. Denies SOB, chest pain, dizziness. He denies drinking any coffee for the past 6 years. Pt is currently on metoprolol 125 mg for HTN. He states he has seen a spout positioner in the past. Pt reports PMHx of "skipped beats." - History of Current Complaint Chief Complaint: EDDysrhythmPalp Time Seen by Provider: 08/27/17 01:43 Hx Obtained From: Patient Onset/Duration: Lasting Hours, Still Present Severity Currently: Mild Character: Skipped Beats Aggravating: Nothing Alleviating: Nothing Associated Signs & Symptoms: Negative - Allergy/Home Medications Allergies/Adverse Reactions: Allergies Allergy/AdvReac Type Severity Reaction Status Date / Time No Known Allergies Allergy Verified 08/26/17 23:22 PMH/Surg Hx/FS Hx/Imm Hx Endocrine/Hematology History: Denies: Hx Diabetes, Hx Thyroid Disease Cardiovascular History: Reports: Hx Angina, Hx Hypertension, Other Cardiovascular Problems/Disorders - "little bit" of an enlarged heart, SVT Denies: Hx Coronary Artery Disease, Hx Hypercholesterolemia, Hx Myocardial Infarction, Hx Valvular Heart Disease Respiratory History: Denies: Hx Asthma, Hx Chronic Obstructive Pulmonary Disease (COPD) GI History: Reports: Hx Gastroesophageal Reflux Disease Denies: Hx Ulcer Musculoskeletal History: Reports: Hx Arthritis - knees Sensory History: Denies: Hx Contacts or Glasses, Hx Hearing Aid Opthamlomology History: Denies: Hx Contacts or Glasses Psychiatric History: Reports: Hx Anxiety - Surgical History Surgery Procedure, Year, and Place: None. Infectious Disease History: No Infectious Disease History: Denies: Hx Hepatitis, Hx Human Immunodeficiency Virus (HIV), Traveled Outside the [place] in Last 30 Days - Family History Known Family History: Positive: Cardiac Disease, Hypertension, Diabetes - Social History Alcohol Use: None Hx Substance Use: No Substance Use Type: Reports: None Hx Tobacco Use: No Smoking Status (MU): Never Smoked Tobacco Review of Systems Negative: Fever, Chills Positive: Palpitations. Negative: Chest Pain Negative: Shortness Of Breath Skin: Negative Neurological: Negative All Other Systems Reviewed And Are Negative: Yes Physical Exam - Summary Physical Exam Summary: VITAL SIGNS: Reviewed. GENERAL: Patient is a well-developed and nourished male who is lying comfortable in the stretcher. Patient is not in any acute respiratory distress. HEAD AND FACE: No signs of trauma. No ecchymosis, hematomas or skull depressions. No sinus tenderness. EYES: PERRLA, EOMI x 2, No injected conjunctiva, no nystagmus. EARS: Hearing grossly intact. Ear canals and tympanic membranes are within normal limits. MOUTH: Oropharynx within normal limits. NECK: Supple, trachea is midline, no adenopathy, no JVD, no carotid bruit, no c- spine tenderness, neck with full ROM. CHEST: Symmetric, no tenderness at palpation LUNGS: Clear to auscultation bilaterally. No wheezing or crackles. CVS: Regular rate and rhythm, S1 and S2 present, no murmurs or gallops appreciated. ABDOMEN: Soft, non-tender. No signs of distention. No rebound no guarding, and no masses palpated. Bowel sounds are normal. EXTREMITIES: FROM in all major joints, no edema, no cyanosis or clubbing. NEURO: Alert and oriented x 3. No acute neurological deficits. Speech is normal and follows commands. SKIN: Dry and warm Triage Information Reviewed: Yes Vital Signs On Initial Exam: Initial Vitals Temp Pulse Resp BP Pulse Ox 97.7 F 75 18 120/89 96 08/26/17 23:19 08/26/17 23:19 08/26/17 23:19 08/26/17 23:19 08/26/17 23:19 Vital Signs Reviewed: Yes Diagnostics - Vital Signs Vital Signs Temp Pulse Resp BP Pulse Ox 08/26/17 23:19 97.7 F 75 18 120/89 96 - Laboratory Lab Statement: Any lab studies that have been ordered have been reviewed, and results considered in the medical decision making process. - EKG 23:26 Cardiac Rate: NL - at 76 bpm EKG Rhythm: Sinus Rhythm EKG Interpretation: Normal axis. Normal interval. No ischemic changes Re-Evaluation - Re-Evaluation First Eval Re-Evaluation Time: 02:40 Comment: [employer] Bus Driver has tried to draw blood from the pt, with a few attempts but was not successful. Pt does not want any blood drawn at this time. He would like to go home and he will follow up with his PCP. Pt is currently asymptomatic and has been sinus with no arrhythmias while in the ED. Course/Dx - Course Assessment/Plan: This pt is a 47 y/o male who presents with palpitations since last night, 08/26/17. Pt reports he was at work last night when he began to feel palpitations, characterized as his heart skipping beats. He states he took his blood pressure at work and it was 150s/92. Denies SOB, chest pain, dizziness. Pt reports PMHx of "skipped beats" for which he has seen a spout positioner. 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 [employer] Driver has tried to draw blood from the pt, with a few attempts but was not successful. Pt does not want any blood drawn at this time. He would like to go home and he will follow up with his PCP. Pt is completely asymptomatic and has been sinus with no arrhythmias while in the ED. He was given Lopressor 25 mg PO in the ED. Pt will be discharged home with follow up from his spout positioner and his PCP. - Diagnoses Provider Diagnoses: Palpitations Discharge - Sign-Out/Discharge Documenting (check all that apply): Discharge/Admit/Transfer - Discharge - Discharge Plan Condition: Stable Disposition: HOME Patient Education Materials: Heart Palpitations (ED) Referrals: No Primary Care Phys,NOPCP [Primary Care Provider] - [facility] [Outside] Additional Instructions: Follow up with your spout positioner. Please follow up with your primary care provider. RETURN TO EMERGENCY DEPARTMENT FOR ANY NEW OR WORSENING SYMPTOMS. The documentation as recorded by the Danielito melchor Angela accurately reflects the service I personally performed and the decisions made by me, Erum Valerio MD.
[2017-08-27 03:04] VITALS: BP 144/85
== END 2017-08-27 03:03 | disposition home or self-care (01) ==
LOC: ED 23:09
DX: R00.2 Palpitations (principal); I20.9 Angina pectoris, unspecified; I10 Essential (primary) hypertension; I47.1 Supraventricular tachycardia; K21.9 Gastro-esophageal reflux disease without esophagitis; F41.9 Anxiety disorder, unspecified
CPT/HCPCS: 93005; 99284

== ENCOUNTER 2018-01-20 04:18 | Emergency (ER) | payer BC ==
--- NOTE | 2018-01-20 05:02 | ED ---
GI/ HPI - HPI Summary HPI Summary: Patient is a 47 y/o M w/ c/o constipation and lower abdominal pressure and burning. Patient has PMHx of IBS. He notes that he takes MOM, colace, and senokot but states these do not provide him any relief in Sx. He states he has not had a "good" bowel movement today, but yesterday was fine. He states his bowels feel "irritable" and notes that he is diaphoretic whenever he is constipated. On triage, pain is rated 10/10, nothing is noted to aggravate/ alleviate Sx. Home medications and allergies are reviewed. - History of Current Complaint Chief Complaint: EDAbdPain Time Seen by Provider: 01/20/18 04:28 Stated Complaint: IBS Hx Obtained From: Patient Onset/Duration: Started Hours Ago - patient reports no good bowel movement today , states he had a good bowel movement yesterday, Still Present Timing: Intermittent Severity: Severe - 10/10 Pain Intensity: 10 Location of Pain: Other - lower abdomen Associated Signs and Symptoms: Positive: Constipation, Diaphoresis, Other: - irritable bowels Aggravating Factor(s): Nothing Alleviating Factor(s): Nothing - Additional Pertinent History Primary Care Physician: [id number] - Allergy/Home Medications Allergies/Adverse Reactions: Allergies Allergy/AdvReac Type Severity Reaction Status Date / Time No Known Allergies Allergy Verified 01/20/18 04:31 PMH/Surg Hx/FS Hx/Imm Hx Endocrine/Hematology History: Denies: Hx Diabetes, Hx Thyroid Disease Cardiovascular History: Reports: Hx Angina, Hx Hypertension, Other Cardiovascular Problems/Disorders - "little bit" of an enlarged heart, SVT Denies: Hx Coronary Artery Disease, Hx Hypercholesterolemia, Hx Myocardial Infarction, Hx Valvular Heart Disease Respiratory History: Denies: Hx Asthma, Hx Chronic Obstructive Pulmonary Disease (COPD) GI History: Reports: Hx Gastroesophageal Reflux Disease Denies: Hx Ulcer Musculoskeletal History: Reports: Hx Arthritis - knees Sensory History: Denies: Hx Contacts or Glasses, Hx Hearing Aid Opthamlomology History: Denies: Hx Contacts or Glasses Psychiatric History: Reports: Hx Anxiety - Surgical History Surgery Procedure, Year, and Place: None. - Immunization History Date of Tetanus Vaccine: unk Date of Influenza Vaccine: unk Infectious Disease History: No Infectious Disease History: Denies: Hx Hepatitis, Hx Human Immunodeficiency Virus (HIV), Traveled Outside the [place] in Last 30 Days - Family History Known Family History: Positive: Cardiac Disease, Hypertension, Diabetes - Social History Alcohol Use: None Hx Substance Use: No Substance Use Type: Reports: None Hx Tobacco Use: No Smoking Status (MU): Never Smoked Tobacco Review of Systems Positive: Skin Diaphoresis Positive: Other - POSITIVE: constipation, burning and pressure at lower abdomen , irritable bowels All Other Systems Reviewed And Are Negative: Yes Physical Exam - Summary Physical Exam Summary: VITAL SIGNS: Reviewed. GENERAL: Patient is a well-developed and morbidly obese male who is lying comfortable in the stretcher. Patient is not in any acute respiratory distress. HEAD AND FACE: No signs of trauma. No ecchymosis, hematomas or skull depressions. No sinus tenderness. EYES: PERRLA, EOMI x 2, No injected conjunctiva, no nystagmus. EARS: Hearing grossly intact. Ear canals and tympanic membranes are within normal limits. MOUTH: Oropharynx within normal limits. NECK: Supple, trachea is midline, no adenopathy, no JVD, no carotid bruit, no c- spine tenderness, neck with full ROM. CHEST: Symmetric, no tenderness at palpation LUNGS: Clear to auscultation bilaterally. No wheezing or crackles. CVS: Regular rate and rhythm, S1 and S2 present, no murmurs or gallops appreciated. ABDOMEN: Soft, non-tender. No signs of distention. No rebound no guarding, and no masses palpated. Bowel sounds are normal. EXTREMITIES: FROM in all major joints, no edema, no cyanosis or clubbing. NEURO: Alert and oriented x 3. No acute neurological deficits. Speech is normal and follows commands. SKIN: Dry and warm Triage Information Reviewed: Yes Vital Signs On Initial Exam: Initial Vitals Temp Pulse Resp BP Pulse Ox 97.2 F 73 20 123/93 100 01/20/18 04:20 01/20/18 04:20 01/20/18 04:20 01/20/18 04:20 01/20/18 04:20 Vital Signs Reviewed: Yes Diagnostics - Vital Signs Vital Signs Temp Pulse Resp BP Pulse Ox 01/20/18 04:20 97.2 F 73 20 123/93 100 - Laboratory Lab Statement: Any lab studies that have been ordered have been reviewed, and results considered in the medical decision making process. - Radiology abdomen x-ray Xray Interpretation: No Acute Changes Radiology Interpretation Completed By: ED Physician - no acute findings, pending official report Re-Evaluation - Re-Evaluation First Eval Re-Evaluation Time: 05:12 Comment: Abdomen X-ray showed no acute findings. This was discussed with patient. Patient was discharged to home and instructed to increase fiber intake and follow up with PCP in 1-2 days. Patient understands and is agreeable with this plan. GIGU Course/Dx - Course Assessment/Plan: Patient is a 47 y/o M w/ c/o constipation and lower abdominal pressure and burning. Patient has PMHx of IBS. He notes that he takes MOM, colace, and senokot but states these do not provide him any relief in Sx. He states he has not had a "good" bowel movement today, but yesterday was fine. He states his bowels feel "irritable" and notes that he is diaphoretic whenever he is constipated. On triage, pain is rated 10/10, nothing is noted to aggravate/ alleviate Sx. On physical exam, patient is noted to be morbidly obese with no other abnormal findings. During ED course, patient was given Bentyl cap, 10 mg PO ONCE. Abdomen X-ray showed no acute findings. Patient was discharged to home and instructed to increase fiber intake and follow up with PCP in 1-2 days. Patient understands and is agreeable with this plan. Dx of IBS. - Diagnoses Provider Diagnoses: IBS (irritable bowel syndrome) Discharge - Sign-Out/Discharge Documenting (check all that apply): Patient Departure - discharge - Discharge Plan Condition: Stable Disposition: HOME Prescriptions: Dicyclomine CAP* [Bentyl CAP*] 10 mg PO TID PRN #20 cap PRN Reason: Pain Patient Education Materials: Irritable Bowel Syndrome (ED) Referrals: [facility] [Outside] - 2 Days Additional Instructions: INCREASE FIBER INTAKE. RETURN TO THE EMERGENCY DEPARTMENT FOR CHANGING OR WORSENING SYMPTOMS. FOLLOW UP WITH PRIMARY CARE PHYSICIAN IN 1-2 DAYS. - Attestation Statements Document Initiated by Scribe: Yes Documenting Scribe: Myles Wilkerson Provider For Whom Scribe is Documenting (Include Credential): Erum Valerio MD Scribe Attestation: Myles Martinez , scribed for Erum Valerio MD on 01/20/18 at [id number].
[2018-01-20] MEDS ORDERED: Dicyclomine CAP* 10 MG PO ONE (05:04)
[2018-01-20 05:26] VITALS: BP 117/85
--- NOTE | 2018-01-20 07:53 | RAD ---
Indication: Lower abdominal pain. Inflammatory bowel syndrome. Comparison: No relevant prior exams available on the [facility] for comparison. Technique: Supine and upright views of the abdomen. Report: Large body habitus limits image quality. No free intraperitoneal air evident. Unremarkable bowel gas pattern. Pelvic phleboliths noted. No suspicious calcifications or mass effect. IMPRESSION: #. No radiographic evidence for acute abdominal pelvic pathology. R0
== END 2018-01-20 05:25 | disposition home or self-care (01) ==
LOC: ED 04:18
DX: K58.9 Irritable bowel syndrome, unspecified (principal)
CPT/HCPCS: 74019; 99282; A9270-GY